=== PATIENT | male | born 1955 | race Caucasian/White ===

== ENCOUNTER 2019-02-28 18:11 | Emergency (ER) | payer OTHER ==
[~2019-02-28] VITALS: Ht 185.4 cm; Wt 120.2 kg
[~2019-02-28 18:11] MED LIST: CYAN50008 PO; DAPA5TAB PO; ESCI10TA PO; EZET10TA15 PO; FISH1CAP16 PO; GINK40TA2 PO; GLUCOSAMINE 1,1 EACH PO; LEVO100T PO; METF1000 PO; PRAV80TA21 PO; RAMI5CAP66 PO; SITA100T PO; TESTOSTERONE; TRAZ-182 PO; UBIQ100C3 PO
[2019-02-28 18:53] LABS: BASOPHILS # (AUTO) 0.1 K/uL (0.0-8.0); BASOPHILS % (AUTO) 1.4 % (0.0-2.0); EOSINOPHILS # (AUTO) 0.1 K/uL (0.0-0.7); EOSINOPHILS % (AUTO) 1.2 % (0.0-7.0); HEMATOCRIT 30.9 % (36.7-47.1); HEMOGLOBIN 9.9 g/dL (12.5-16.3); LYMPHOCYTES # (AUTO) 3.5 K/uL (20.0-40.0); LYMPHOCYTES % (AUTO) 48.8 % (20.5-51.5); MEAN CORPUSCULAR HEMOGLOBIN 23.6 uug (23.8-33.4); MEAN CORPUSCULAR HGB CONC 32 g/dL (32.5-36.3); MEAN CORPUSCULAR VOLUME 73.4 fL (73.0-96.2); MONOCYTES # (AUTO) 0.5 K/uL (2.0-10.0); MONOCYTES % (AUTO) 6.8 % (0.0-11.0); NEUTROPHILS % (AUTO) 41.8 % (38.5-71.5); PLATELET COUNT (AUTO) 284 K/uL (152-348); WHITE BLOOD COUNT (AUTO) 7.3 K/uL (3.6-10.2)
[2019-02-28] MEDS ORDERED: TEST200V3 IM (18:57)
[2019-02-28] MEDS ORDERED: ROSU40TA PO (18:57)
[2019-02-28] MEDS ORDERED: DULA1.5P SQ (18:57)
[2019-02-28] MEDS ORDERED: EMPA25TA PO (18:57)
[2019-02-28] MEDS ORDERED: UBID100C13 PO (18:57)
[2019-02-28] MEDS ORDERED: MULT1CAP34 PO (18:57)
[2019-02-28] MEDS ORDERED: TADA5TAB2 PO (18:57)
[2019-02-28] MEDS ORDERED: LEVO150T8 PO (18:57)
[2019-02-28] MEDS ORDERED: FLUO-120 PO (18:57)
[2019-02-28] MEDS ORDERED: [UNRECOGNIZED DRUG - OTHER] PO (18:57)
[2019-02-28] MEDS ORDERED: [UNRECOGNIZED DRUG - CODE] PO (18:57)
--- NOTE | 2019-02-28 19:05 | NUR ---
HAND OFF AND SBAR RECEIVED FROM OUTGOING DAY SHIFT RN PT IS ON SEMI ADAM'S ON HIS PHONE, WAITING FOR LAB RESULTS AND UPDATE PT NAD, W/ G20 SALINE LOCK ON R AC SIDERAILS X2 UP BED AT LOWEST POSITION
[2019-02-28 19:11] LABS: CREATININE 0.9 mg/dL (0.6-1.3)
[2019-02-28 19:13] LABS: EOSINOPHILS % (MANUAL) 1 % (0-8); LYMPHOCYTES % (MANUAL) 44 % (20-40); NEUTROPHILS % (MANUAL) 55 % (42-75)
[2019-02-28 19:17] LABS: BILIRUBIN,DIRECT 0.1 mg/dL (0.0-0.2); BILIRUBIN,TOTAL 0.4 mg/dL (0.2-1.0); TOTAL PROTEIN, SERUM 6.8 g/dL (6.4-8.2)
--- NOTE | 2019-02-28 19:45 | NUR ---
Patient discharged to home in stable conditon. Written and verbal after care instructions given. Patient verbalizes understanding of instructions. DC IV SALINE LOCK, DRESSED AMBULATORY W/ STABLE GAIT ALL BELONGINGS W/ PT
[2019-02-28 19:46] VITALS: BP 138/68
== END 2019-02-28 19:46 | disposition home or self-care (01) ==
LOC: ER 18:11
DX: D50.0 Iron deficiency anemia secondary to blood loss (chronic) (principal); K21.9 Gastro-esophageal reflux disease without esophagitis; E11.9 Type 2 diabetes mellitus without complications; Z79.899 Other long term (current) drug therapy
CPT/HCPCS: 36415; 70030-TC; 85025; 85730; 86850; 86900; 86901; A4663